=== PATIENT | female | born 1975 | race Two or more races ===

== ENCOUNTER 2017-02-15 09:48 | Inpatient (IN) | payer MEDICAID ==
[~2017-02-15] VITALS: Ht 154.9 cm; Wt 60.0 kg
[2017-02-15 09:49] VITALS: BP 154/70; PULSE 110; RESP 18; TEMP 98.4; O2SAT 98
[2017-02-15] MEDS ORDERED: SODIUM CHLOR 0.9% 1000 ML INJ 1,000 ML IV SCH (09:58)
[2017-02-15] MEDS ORDERED: SITA25 PO (10:00)
[2017-02-15] MEDS ORDERED: METF1000 PO (10:00)
[2017-02-15] MEDS ORDERED: MORPHINE SULFATE 4 MG/ML INJ IV PUSH ONE (10:00)
[2017-02-15] MEDS ORDERED: SODIUM CHLORIDE 0.9% FLUSH 10 ML FLUSH IV FLUSH PRN ×2 (10:00→14:15)
[2017-02-15] MEDS ORDERED: ONDANSETRON HCL 4 MG/2 ML VIAL IVP ONE (10:00)
--- NOTE | 2017-02-15 10:01 | PD ---
HPI Chief Complaint: Flank/Kidney Pain Time Seen by Provider: 09:55 Travel History International Travel<30 days: No Contact w/Intl Traveler<30days: No Traveled to known affect area: No History of Present Illness HPI 41-year-old female with history of diabetes, hypertension, hyponatremia, kidney stones, here for evaluation of left flank pain. The patient reports that about 2 weeks ago she was diagnosed with a left-sided kidney stone that was 6 mm at [facility]. She has been having intermittent left flank pain since this time which became constant today, sharp, radiates to her left lower abdomen. No modifying factors. Pain is now constant. No dysuria or hematuria. She has been having subjective fevers and chills as well as nausea. No vomiting. History of section and bilateral tubal ligation. No other abdominal surgeries. PFSH Past Medical History Diabetes: Yes Patient Takes Glucophage: Yes ?: Not LMP: a week ago Social History Alcohol Use: No Tobacco Use: No Allergies-Medications (Allergen,Severity, Reaction): Coded Allergies: No Known Allergies (Unverified , 02/15/17) Reported Meds & Prescriptions Reported Meds & Active Scripts Active Reported Januvia (Sitagliptin Phosphate) 25 Mg Tab 25 Mg PO DAILY Metformin (Metformin HCl) 1,000 Mg Tab 1,000 Mg PO BIDPC With meals Review of Systems Except as stated in HPI: all other systems reviewed are Neg Physical Exam Narrative GENERAL: Well-developed, well-nourished, comfortable, no acute distress. SKIN: Focused skin assessment warm/dry. No rash. HEAD: Atraumatic. Normocephalic. EYES: Pupils equal and round. No scleral icterus. No injection or drainage. ENT: Mucous membranes pink and moist. CARDIOVASCULAR: Regular rate and rhythm. RESPIRATORY: No accessory muscle use. Clear to auscultation. Breath sounds equal bilaterally. GASTROINTESTINAL: Abdomen soft, non-tender, nondistended. MUSCULOSKELETAL: No obvious deformities. No clubbing. No cyanosis. No edema. Moderate left CVA tenderness. No right CVA tenderness. No midline vertebral step-off or tenderness. NEUROLOGICAL: Awake and alert. No obvious cranial nerve deficits. Motor grossly within normal limits. Normal speech. PSYCHIATRIC: Appropriate mood and affect; insight and judgment normal. Data Data Last Documented VS Vital Signs Date Time Temp Pulse Resp B/P Pulse Ox O2 Delivery O2 Flow Rate FiO2 4/2/17 10:31 78 18 02/15/17 10:16 97 Nasal Cannula 2 02/15/17 09:49 98.4 154/70 Orders Beta Hcg (Quant/Titer) (02/15/17 09:58) Complete Blood Count With Diff (02/15/17 09:58) Comprehensive Metabolic Panel (02/15/17 09:58) Lipase (02/15/17 09:58) Prothrombin Time / Inr (Pt) (02/15/17 09:58) Act Partial Throm Time (Ptt) (02/15/17 09:58) Urinalysis - C+S If Indicated (02/15/17 09:58) Ct Abd/Pel W/O Iv Contrast (02/15/17 09:58) Iv Access Insert/Monitor (02/15/17 09:58) Ecg Monitoring (02/15/17 09:58) Oximetry (02/15/17 09:58) Morphine Inj (Morphine Inj) (02/15/17 10:00) Ondansetron Inj (Zofran Inj) (02/15/17 10:00) Sodium Chlor 0.9% 1000 Ml Inj (Ns 1000 M (02/15/17 09:58) Sodium Chloride 0.9% Flush (Ns Flush) (02/15/17 10:00) Ketorolac Inj (Toradol Inj) (02/15/17 12:00) Tamsulosin (Flomax) (02/15/17 12:15) Labs Laboratory Tests Test 02/15/17 02/15/17 10:00 10:05 White Blood Count 17.9 TH/MM3 Red Blood Count 5.49 MIL/MM3 Hemoglobin 15.5 GM/DL Hematocrit 47.3 % Mean Corpuscular Volume 86.1 FL Mean Corpuscular Hemoglobin 28.2 PG Mean Corpuscular Hemoglobin 32.8 % Concent Red Cell Distribution Width 15.6 % Platelet Count 602 TH/MM3 Mean Platelet Volume 9.0 FL Neutrophils (%) (Auto) 79.3 % Lymphocytes (%) (Auto) 9.5 % Monocytes (%) (Auto) 7.4 % Eosinophils (%) (Auto) 3.3 % Basophils (%) (Auto) 0.5 % Neutrophils # (Auto) 14.2 TH/MM3 Lymphocytes # (Auto) 1.7 TH/MM3 Monocytes # (Auto) 1.3 TH/MM3 Eosinophils # (Auto) 0.6 TH/MM3 Basophils # (Auto) 0.1 TH/MM3 CBC Comment DIFF FINAL Differential Comment Prothrombin Time 11.3 SEC Prothromb Time International 1.0 RATIO Ratio Activated Partial 29.8 SEC Thromboplast Time Sodium Level 137 MEQ/L Potassium Level 4.3 MEQ/L Chloride Level 103 MEQ/L Carbon Dioxide Level 24.8 MEQ/L Anion Gap 9 MEQ/L Blood Urea Nitrogen 11 MG/DL Creatinine 0.88 MG/DL Estimat Glomerular Filtration 71 ML/MIN Rate Random Glucose 166 MG/DL Calcium Level 9.8 MG/DL Total Bilirubin 0.5 MG/DL Aspartate Amino Transf 40 U/L (AST/SGOT) Alanine Aminotransferase 87 U/L (ALT/SGPT) Alkaline Phosphatase 136 U/L Total Protein 8.6 GM/DL Albumin 4.0 GM/DL Lipase 227 U/L Human Chorionic Gonadotropin, LESS THAN 1 Quant MIU/ML Urine Color COLORLESS Urine Turbidity CLEAR Urine pH 6.0 Urine Specific [place] 1.003 Urine Protein NEG mg/dL Urine Glucose (UA) NEG mg/dL Urine Ketones NEG mg/dL Urine Occult Blood NEG Urine Nitrite NEG Urine Bilirubin NEG Urine Urobilinogen LESS THAN 2.0 MG/DL Urine Leukocyte Esterase NEG Urine RBC LESS THAN 1 /hpf Urine WBC 1 /hpf Microscopic Urinalysis Comment CULT NOT INDICATED MDM Medical Decision Making Medical Screen Exam Complete: Yes Emergency Medical Condition: Yes Differential Diagnosis Nephrolithiasis, ureterolithiasis, UTI, pyelonephritis, diverticulitis, dissection unlikely Narrative Course Vital signs reviewed. CBC shows WBC 17.9, hemoglobin 15.5, hematocrit 47.3, platelets 602. Neutrophils 79.3%. CMP is remarkable for AST of 40, ALT 87, alkaline phosphatase 136, random glucose 166. UA is within normal limits, not suggestive of UTI. CT abdomen pelvis: CONCLUSION: Obstructing 6 - 7 mm densely calcified stone left ureteropelvic junction. Patient was made aware of all findings. She was given a dose of morphine and Toradol and her pain is still not well controlled. She tells me that she was diagnosed with a 6 mm stone on the left side at [facility] 2 weeks ago when she was having left flank pain. If this is the same stone, then it has not moved. Given uncontrolled pain, the patient be admitted for pain control and urology consultation. Case discussed with on-call urologist Dr. Landa who would like the patient to be NPO after midnight Case discussed with medical residents. The patient will be admitted to their service under Dr. Kahn. Diagnosis Primary Impression: Ureterolithiasis Additional Impression: Intractable pain Admitting Information Admitting Physician Requests: Baldev Holden MD Feb 15, 2017 10:01
[2017-02-15 10:16] VITALS: O2SAT 97
[2017-02-15 10:32] LABS: AUTOMATED NEUTROPHIL # 14.2 TH/MM3 (1.8-7.7); BASOPHIL # 0.1 TH/MM3 (0-0.2); BASOPHIL % 0.5 % (0.0-2.0); EOSINOPHIL # 0.6 TH/MM3 (0-0.4); EOSINOPHIL % 3.3 % (0.0-4.0); HEMATOCRIT 47.3 % (35.0-46.0); LYMPH % 9.5 % (9.0-44.0); LYMPHOCYTE # 1.7 TH/MM3 (1.0-4.8); MEAN CELL VOLUME 86.1 FL (80.0-100.0); MEAN CORPUSCULAR HEMOGLOBIN 28.2 PG (27.0-34.0); MEAN CORPUSCULAR HGB CONC 32.8 % (32.0-36.0); MONO % 7.4 % (0.0-8.0); NEUT % 79.3 % (16.0-70.0); PLATELET COUNT 602 TH/MM3 (150-450); RED BLOOD COUNT 5.49 MIL/MM3 (4.00-5.30); RED CELL DISTRIBUTION WIDTH 15.6 % (11.6-17.2); WHITE BLOOD COUNT 17.9 TH/MM3 (4.0-11.0)
[2017-02-15 10:33] LABS: HEMO FLAGS DIFF FINAL
[2017-02-15 10:43] LABS: APTT (PATIENT) 29.8 SEC (24.3-30.1); PROTHROMBIN TIME - PATIENT 11.3 SEC (9.8-11.6)
[2017-02-15 10:58] LABS: ALKALINE PHOSPHATASE 136 U/L (45-117); ALT (GPT) 87 U/L (10-53); BETA HCG QUANT LESS THAN 1 MIU/ML (0-5); TOTAL BILIRUBIN ADULT 0.5 MG/DL (0.2-1.0)
[2017-02-15 11:07] LABS: ANION GAP 9 MEQ/L (5-15); AST (GOT) 40 U/L (15-37); BICARBONATE 24.8 MEQ/L (21.0-32.0); BLOOD UREA NITROGEN 11 MG/DL (7-18); CHLORIDE 103 MEQ/L (98-107); GLOMERULAR FILTRATION RATE 71 ML/MIN (>89); POTASSIUM 4.3 MEQ/L (3.5-5.1); SODIUM (NA) 137 MEQ/L (136-145)
[2017-02-15 11:17] LABS: BLOOD, URINE NEG (NEG); COMMENT (UR) CULT NOT INDICATED; CULTURE IF INDICATED CULT NOT INDICATED; GLUCOSE,URINE NEG (NEG); KETONE, URINE NEG (NEG); NITRITE,URINE NEG (NEG); URINE COLOR COLORLESS (YELLW/STRAW)
[2017-02-15] MEDS ORDERED: KETOROLAC TROMETHAMINE 30 MG/ML (IVP) VIAL IV PUSH ONE (12:00)
--- NOTE | 2017-02-15 12:00 | RADRPT ---
EXAM DATE/TIME: 02/15/2017 11:45 [place] COMPARISON: No previous studies available for comparison. INDICATIONS : Left flank pain for one week. ORAL CONTRAST: No oral contrast ingested. RADIATION DOSE: 11.21 CTDIvol (mGy) MEDICAL HISTORY : None SURGICAL HISTORY : None. ENCOUNTER: Initial ACUITY: 1 week PAIN SCALE: 4/10 LOCATION: Left flank TECHNIQUE: Volumetric scanning of the abdomen and pelvis was performed. Using automated exposure control and ad justment of the mA and/or kV according to patient size, radiation dose was kept as low as reasonably achievable to obtain optimal diagnostic quality images. FINDINGS: The lung bases are clear. There is no pericardial effusion. The liver is free of focal defects. Sp peterson, pancreas and adrenal glands are unremarkable. RIGHT KIDNEY: There are multiple small 1 - 2 mm calculi on the right. LEFT KIDNEY: There is mild prominence to the left collecting system with an obstructing stone measuring 6 - 7 mm a t the left ureteropelvic junction. Tiny 2 mm stone remains in the left kidney. Pelvic contents are unremarkable. CONCLUSION: Obstructing 6 - 7 mm densely calcified stone left ureteropelvic junction. Rk Guevara MD FACR on February 15, 2017 at 11:54 Board Certified Radiologist. This report was verified electronically.
[2017-02-15] MEDS ORDERED: TAMSULOSIN HCL 0.4 MG CAP PO ONE (12:15)
[2017-02-15 12:53] VITALS: BP 131/77; PULSE 90; RESP 18; O2SAT 99
--- NOTE | 2017-02-15 14:10 | HHI.HP ---
HPI Service Family Medicine Primary Care Physician Unknown Admission Diagnosis left ureterolithiasis, intractable left flank pain Diagnoses: International Travel<30 Days: No Contact w/Intl Traveler<30days: No Known Affected Area: No History of Present Illness 41 year old female presents with left sided flank pain. The pain started off as a dull ache one week ago. She went to the hospital at that time and was diagnosed with a kidney stone. She is now returning because the pain has become sharp, stabbing, and intense. It is located on in the left flank and radiates around to the left lower quadrant. The pain comes in paroxysms, and can be 8/10 when at its peak. It is currently a 4/10 after pain medication. She has pain with urination but no hematuria. This is her fourth kidney stone in 3 years. She had a fever 2 days ago as high as 101. She has nausea and had vomiting X3 four days ago that resolved. She also has a stuffy nose and a dry cough, and reports a history of allergic rhinitis. Review of Systems Constitutional: COMPLAINS OF: Fever, Chills, Change in appetite, DENIES: Diaphoretic episodes, Fatigue, Weight gain, Weight loss Endocrine: DENIES: Heat/cold intolerance, Polydipsia, Polyuria Eyes: DENIES: Blurred vision, Eye inflammation, Eye pain, Double Vision Ears, nose, mouth, throat: COMPLAINS OF: Running Nose, DENIES: Throat pain, Hoarseness, Sinus Pain, Odynophagia Respiratory: DENIES: Cough, Hemoptysis, Shortness of breath Cardiovascular: DENIES: Chest pain, Syncope, Lower Extremity Edema Gastrointestinal: COMPLAINS OF: Nausea, Vomiting, DENIES: Abdominal pain, Black stools, Bloody stools, Constipation, Diarrhea Genitourinary: COMPLAINS OF: Dysuria, DENIES: Vaginal discharge Musculoskeletal: COMPLAINS OF: Back pain, DENIES: Neck pain Integumentary: DENIES: Rash Hematologic/lymphatic: DENIES: Lymphadenopathy Immunologic/allergic: DENIES: Eczema Neurologic: DENIES: Seizures Psychiatric: DENIES: Mood changes, Depression Past Family Social History Past Medical History Diabetes mellitus type 2 Hyperlipidemia Hypertension Thrombocytosis of unknown etiology, followed by hematology Past Surgical History Right knee surgery x1 tubal ligation Reported Medications Reported Meds & Active Scripts Active Reported Pravastatin 20 Mg Tab 20 Mg PO HS Januvia (Sitagliptin Phosphate) 100 Mg Tab 100 Mg PO DAILY Fish Oil ([place]-3 Fatty Acids) 1,000 Mg Cap 2,000 Mg PO BID Aspirin 81 Mg Tabdr 81 Mg PO DAILY Amlodipine (Amlodipine Besylate) 10 Mg Tab 10 Mg PO DAILY Januvia (Sitagliptin Phosphate) 25 Mg Tab 25 Mg PO DAILY Metformin (Metformin HCl) 1,000 Mg Tab 1,000 Mg PO BIDPC With meals Allergies: Coded Allergies: No Known Allergies (Unverified , 02/15/17) Active Ordered Medications Inpatient Medications Acetaminophen (Tylenol) 650 mg Q4H PRN PO TEMP > 100.4; Start 02/15/17 at 14:15 Docusate Sodium (Colace) 100 mg Q12HR PO Last administered on 02/15/17 14:27; Start 02/15/17 at 15:00 Enoxaparin Sodium (Lovenox Inj) 40 mg Q24H SQ Last administered on 02/15/17 14: 28; Start 02/15/17 at 15:00 Hydromorphone HCl (Dilaudid Pf Inj) 1 mg Q3H PRN IV BREAKTHROUGH PAIN; Start at 14:15 Ketorolac Tromethamine (Toradol Inj) 30 mg ONCE ONCE IV PUSH Last administered on 02/15/17 12:08; Start 02/15/17 at 12:00; Stop 02/15/17 at 12:01; Status DC Morphine Sulfate (Morphine Inj) 4 mg ONCE ONCE IV PUSH Last administered on 10:14; Start 02/15/17 at 10:00; Stop 02/15/17 at 10:01; Status DC Naloxone HCl (Narcan Inj) 0.4 mg UNSCH PRN IV SEE LABEL COMMENTS; Start at 14:15; Stop 02/15/17 at 14:15; Status DC Ondansetron HCl (Zofran Inj) 4 mg Q6H PRN IVP NAUSEA OR VOMITING; Start at 14:15 Oxycodone/ Acetaminophen (Percocet 5-325 Mg) 1 tab Q6H PRN PO PAIN SCALE 3 TO 5; Start 02/15/17 at 14:15 Oxycodone/ Acetaminophen (Percocet 10-325 Mg) 1 tab Q6H PRN PO PAIN SCALE 6 TO 10; Start 02/15/17 at 14:15 Sennosides (Senokot) 17.2 mg Q12H PRN PO CONSTIPATION; Start 02/15/17 at 14:15 Sodium Chloride (NS 1000 ml Inj) 1,000 ml @ 100 mls/hr Q10H IV Last administered on 02/15/17 14:41; Start 02/15/17 at 14:30 Sodium Chloride (NS Flush) 2 ml BID IV FLUSH ; Start 02/15/17 at 14:15 Tamsulosin HCl (Flomax) 0.4 mg ONCE ONCE PO Last administered on 02/15/17 12: 43; Start 02/15/17 at 12:15; Stop 02/15/17 at 12:16; Status DC Tamsulosin HCl 0.4 mg 0.4 mg DAILY PO ; Start 02/16/17 at 09:00 Family History Aunt: frequent kidney stones Paternal: diabetes, hypertension Social History Never smoked No alcohol or drug use Lives with daughter and Not currently employed Physical Exam Vital Signs Vital Signs Date Time Temp Pulse Resp B/P Pulse Ox O2 Delivery O2 Flow Rate FiO2 02/15/17 12:53 90 18 131/77 99 Room Air 02/15/17 10:31 78 18 02/15/17 10:16 97 Nasal Cannula 2 02/15/17 09:49 98.4 110 18 154/70 98 Physical Exam GENERAL: Lying in bed, no acute distress SKIN: No rashes, clear HEENT: No conjunctivitis, has nasal congestion, normal pharynx NECK: No lymphadenopathy CARDIOVASCULAR: Regular rate and rhythm without murmurs, gallops, or rubs. Normal pulses. RESPIRATORY: Clear to auscultation. Breath sounds equal bilaterally. No wheezes , rales, or rhonchi. GASTROINTESTINAL: Abdomen soft, non-tender, nondistended. Normal bowel sounds. MUSCULOSKELETAL: Extremities without clubbing, cyanosis, or edema. : CVA tenderness on the right, extends to left lower quadrant NEUROLOGICAL: Awake and alert. Cranial nerves II through XII intact. Laboratory Laboratory Tests Test 02/15/17 02/15/17 10:00 10:05 White Blood Count 17.9 Red Blood Count 5.49 Hemoglobin 15.5 Hematocrit 47.3 Mean Corpuscular Volume 86.1 Mean Corpuscular Hemoglobin 28.2 Mean Corpuscular Hemoglobin 32.8 Concent Red Cell Distribution Width 15.6 Platelet Count 602 Mean Platelet Volume 9.0 Neutrophils (%) (Auto) 79.3 Lymphocytes (%) (Auto) 9.5 Monocytes (%) (Auto) 7.4 Eosinophils (%) (Auto) 3.3 Basophils (%) (Auto) 0.5 Neutrophils # (Auto) 14.2 Lymphocytes # (Auto) 1.7 Monocytes # (Auto) 1.3 Eosinophils # (Auto) 0.6 Basophils # (Auto) 0.1 CBC Comment DIFF FINAL Differential Comment Prothrombin Time 11.3 Prothromb Time International 1.0 Ratio Activated Partial 29.8 Thromboplast Time Sodium Level 137 Potassium Level 4.3 Chloride Level 103 Carbon Dioxide Level 24.8 Anion Gap 9 Blood Urea Nitrogen 11 Creatinine 0.88 Estimat Glomerular Filtration 71 Rate Random Glucose 166 Calcium Level 9.8 Total Bilirubin 0.5 Aspartate Amino Transf 40 (AST/SGOT) Alanine Aminotransferase 87 (ALT/SGPT) Alkaline Phosphatase 136 Total Protein 8.6 Albumin 4.0 Lipase 227 Human Chorionic Gonadotropin, LESS THAN 1 Quant Urine Color COLORLESS Urine Turbidity CLEAR Urine pH 6.0 Urine Specific [place] 1.003 Urine Protein NEG Urine Glucose (UA) NEG Urine Ketones NEG Urine Occult Blood NEG Urine Nitrite NEG Urine Bilirubin NEG Urine Urobilinogen LESS THAN 2.0 Urine Leukocyte Esterase NEG Urine RBC LESS THAN 1 Urine WBC 1 Microscopic Urinalysis Comment CULT NOT INDICATED Result Diagram: 02/15/17 1000 02/15/17 1000 Imaging multiple small 1-2 mm calculi on right. Mild prominence of the left collective system, with an obstructing stone that is 6-7 mm at the ureteropelvic junction. 2 mm stone in the left kidney. Septic Shock Reassessment Heart: Regular rate and rhythm Lungs: Clear Skin: Warm Capillary Refill: <2 seconds Assessment and Plan Assessment and Plan 41 year old female with an obstructing left ureteric stone. Code Status FULL CODE Discussed Condition With Dr. Candida Mcdonnell Problem List: (1) Kidney stone on left side Status: Acute Plan: 6 to 7 mm obstructing stone at the left ureteropelvic junction, with mild prominence of the left collecting system. Also incidentally with 1 to 2 mm multiple small calculi on the right. Also with a 2 mm kidney stone on the left. This is her fourth kidney stone in the past 3 years. No kidney stones before then. She has an aunt with frequent kidney stones. She does not know type of kidney stone she's had in the past. The 6 to 7 mm kidney stone is likely obstructive given mild hydronephrosis and length of time the stone has been present. Urinalysis negative for infection, also no hematuria. - Consulted Dr. Landa, urologist. - Will likely get a ureteric stent in the morning. Will be NPO after midnight. - Pain management with Tylenol and Percocet, Dilaudid for breakthrough pain. - Tamsulosin 0.4 mg qday. - Maintenance fluids at 100 mls/hr. - Ondansetron PRN for nausea/vomiting. - Will benefit from strainer to assess type of stones to better direct counseling. (2) Diabetes type 2, controlled Status: Chronic Plan: - Hold metformin and Januvia - Low dose sliding scale insulin (3) Hypertension Status: Chronic Plan: - Continue amlodipine (4) Hyperlipidemia Status: Chronic Plan: - Continue statin (5) No contraindication to deep vein thrombosis (DVT) prophylaxis Status: Acute Plan: - Lovenox and SCD's for DVT prophylaxis - Encourage ambulation as tolerated (6) Nutrition, metabolism, and development symptoms Status: Acute Plan: Fluids: NS 100 mls/hr Electrolytes: Normal Nutrition: Diabetic diet, NPO after midnight Physician Certification 2 Midnight Certification Type: Admission for Inpatient Services Order for Inpatient Services The services are ordered in accordance with Medicare regulations or non- Medicare payer requirements, as applicable. In the case of services not specified as inpatient-only, they are appropriately provided as inpatient services in accordance with the 2-midnight benchmark. Estimated LOS (days): 3 days is the estimated time the patient will need to remain in the hospital, assuming treatment plan goals are met and no additional complications. Post-Hospital Plan: Home Erwin Peraza MD R2 Feb 15, 2017 14:10
[2017-02-15] MEDS ORDERED: ACETAMINOPHEN 325 MG TAB PO PRN (14:15)
[2017-02-15] MEDS ORDERED: oxyCODONE/ACETAMINOPHEN 5 MG/325 MG TAB PO PRN (14:15)
[2017-02-15] MEDS ORDERED: HYDROmorphone HCL PF 1 MG/ML VIAL IV PRN (14:15)
[2017-02-15] MEDS ORDERED: ONDANSETRON HCL 4 MG/2 ML VIAL IVP PRN (14:15)
[2017-02-15] MEDS ORDERED: SENNOSIDES 8.6 MG TAB PO PRN (14:15)
[2017-02-15] MEDS ORDERED: NALOXONE HCL 0.4 MG/ML AMP IV PRN ×2 (14:15)
[2017-02-15] MEDS: SODIUM CHLORIDE 0.9% FLUSH 10 ML FLUSH IV FLUSH SCH ×2 (14:15→20:55)
[2017-02-15] MEDS: DOCUSATE SODIUM 100 MG CAP PO SCH ×2 (14:27→20:55)
[2017-02-15] MEDS: ENOXAPARIN SODIUM 40 MG/0.4 ML SYRINGE SQ SCH (14:28)
[2017-02-15] MEDS: SODIUM CHLOR 0.9% 1000 ML INJ 1,000 ML IV SCH (14:41)
[2017-02-15 16:25] VITALS: BP 130/69; PULSE 94; RESP 22; TEMP 98; O2SAT 97
[2017-02-15] MEDS ORDERED: PRAV20TA2 PO (17:25)
[2017-02-15] MEDS ORDERED: ASPI1TAB69 PO (17:25)
[2017-02-15] MEDS ORDERED: AMLO10TA2 PO (17:25)
[2017-02-15] MEDS ORDERED: SITA1TAB2 PO (17:25)
[2017-02-15] MEDS ORDERED: FISH1000 PO (17:25)
--- NOTE | 2017-02-15 17:26 | PD.CONS ---
HPI Service Urology Consult Requested By Reason for Consult Nephrolithiasis Primary Care Physician Unknown Diagnosis: History of Present Illness 41 yo female with history of DM admitted for left flank pain found to have a left midureteral stone. Patient reports she began to experience left flank pain approx one month ago. The pain was initially dull, located mainly in the left flank. However the pain worsened to a sharp stabbing pain that now radiates from the left flank to the left anterior abdomen. No fevers, no hematuria. Ct scan in the ED identied a left mid to proximal ureteral stone measuring 5-6mm in size causing left hydronphrosis. Patient has had kidney stones in the past of which she has passed spontaneously. She has never required surgical intervention for her stone disease. She has an appointment with [facility] near the and of February. Review of Systems ROS Limitations: Clinical Condition Constitutional: DENIES: Fever Endocrine: DENIES: Polyuria Eyes: DENIES: Blurred vision Ears, nose, mouth, throat: DENIES: Hearing loss Respiratory: DENIES: Apneas Cardiovascular: DENIES: Chest pain Gastrointestinal: COMPLAINS OF: Abdominal pain, Constipation Genitourinary: DENIES: Urinary frequency, Hematuria, Dysuria Musculoskeletal: COMPLAINS OF: Back pain Integumentary: DENIES: Rash Hematologic/lymphatic: DENIES: Bruising Immunologic/allergic: DENIES: Eczema Neurologic: DENIES: Headache Psychiatric: DENIES: Anxiety Except as stated in HPI: all other systems reviewed are Neg Past Family Social History Past Medical History DM Nephrolithiasis Past Surgical History No prior surgeries Reported Medications Reported Meds & Active Scripts Active Reported Januvia (Sitagliptin Phosphate) 25 Mg Tab 25 Mg PO DAILY Metformin (Metformin HCl) 1,000 Mg Tab 1,000 Mg PO BIDPC With meals Allergies: Coded Allergies: No Known Allergies (Unverified , 02/15/17) Active Ordered Medications Current Medications Medications (Trade) Dose Ordered Sig/Geoff Route Start Time Stop Time Status Last Admin (NS Flush) 2 ml UNSCH PRN IV FLUSH 02/15/17 14:15 (NS Flush) 2 ml BID IV FLUSH 02/15/17 14:15 (Tylenol) 650 mg Q4H PRN PO 02/15/17 14:15 (Zofran Inj) 4 mg Q6H PRN IVP 02/15/17 14:15 (Colace) 100 mg Q12HR PO 02/15/17 15:00 02/15/17 14:27 (Senokot) 17.2 mg Q12H PRN PO 02/15/17 14:15 (Lovenox Inj) 40 mg Q24H SQ 02/15/17 15:00 02/15/17 14:28 (Narcan Inj) 0.4 mg UNSCH PRN IV 02/15/17 14:15 (Percocet 5-325 Mg) 1 tab Q6H PRN PO 02/15/17 14:15 (Percocet 10-325 Mg) 1 tab Q6H PRN PO 02/15/17 14:15 (Dilaudid Pf Inj) 1 mg Q3H PRN IV 02/15/17 14:15 Tamsulosin HCl 0.4 mg 0.4 mg DAILY PO 02/16/17 09:00 (NS 1000 ml Inj) 1,000 ml @ 100 mls/hr Q10H IV 02/15/17 14:30 02/15/17 14:41 Family History Family history reviewed and noncontributory to present illness Social History No tobacco or ETOh use Physical Exam Vital Signs Date Time Temp Pulse Resp B/P Pulse Ox O2 Delivery O2 Flow Rate FiO2 02/15/17 16:25 98.0 94 22 130/69 97 02/15/17 12:53 90 18 131/77 99 Room Air 02/15/17 10:31 78 18 02/15/17 10:16 97 Nasal Cannula 2 02/15/17 09:49 98.4 110 18 154/70 98 Physical Exam GENERAL: This is a well-nourished, well-developed patient, in no apparent distress. SKIN: No rashes, ecchymoses or lesions. Cool and dry. HEAD: Atraumatic. Normocephalic. EYES: Extraocular motions intact. No scleral icterus. No injection or drainage. ENT: Nose without bleeding, purulent drainage. Airway patent. NECK: Trachea midline. No JVD or lymphadenopathy. CARDIOVASCULAR: Normal pulses, extremities well perfused RESPIRATORY: Nonlabored, equal chest rise GASTROINTESTINAL: Abdomen soft, non-tender, nondistended. MUSCULOSKELETAL: Extremities without clubbing, cyanosis, or edema. NEUROLOGICAL: Awake and alert. Motor and sensory grossly within normal limits. Normal speech. Lab results reviewed: Yes Laboratory Tests Test 02/15/17 02/15/17 10:00 10:05 White Blood Count 17.9 Red Blood Count 5.49 Hemoglobin 15.5 Hematocrit 47.3 Mean Corpuscular Volume 86.1 Mean Corpuscular Hemoglobin 28.2 Mean Corpuscular Hemoglobin 32.8 Concent Red Cell Distribution Width 15.6 Platelet Count 602 Mean Platelet Volume 9.0 Neutrophils (%) (Auto) 79.3 Lymphocytes (%) (Auto) 9.5 Monocytes (%) (Auto) 7.4 Eosinophils (%) (Auto) 3.3 Basophils (%) (Auto) 0.5 Neutrophils # (Auto) 14.2 Lymphocytes # (Auto) 1.7 Monocytes # (Auto) 1.3 Eosinophils # (Auto) 0.6 Basophils # (Auto) 0.1 CBC Comment DIFF FINAL Differential Comment Prothrombin Time 11.3 Prothromb Time International 1.0 Ratio Activated Partial 29.8 Thromboplast Time Sodium Level 137 Potassium Level 4.3 Chloride Level 103 Carbon Dioxide Level 24.8 Anion Gap 9 Blood Urea Nitrogen 11 Creatinine 0.88 Estimat Glomerular Filtration 71 Rate Random Glucose 166 Calcium Level 9.8 Total Bilirubin 0.5 Aspartate Amino Transf 40 (AST/SGOT) Alanine Aminotransferase 87 (ALT/SGPT) Alkaline Phosphatase 136 Total Protein 8.6 Albumin 4.0 Lipase 227 Human Chorionic Gonadotropin, LESS THAN 1 Quant Urine Color COLORLESS Urine Turbidity CLEAR Urine pH 6.0 Urine Specific [place] 1.003 Urine Protein NEG Urine Glucose (UA) NEG Urine Ketones NEG Urine Occult Blood NEG Urine Nitrite NEG Urine Bilirubin NEG Urine Urobilinogen LESS THAN 2.0 Urine Leukocyte Esterase NEG Urine RBC LESS THAN 1 Urine WBC 1 Microscopic Urinalysis Comment CULT NOT INDICATED Result Diagram: 02/15/17 1000 02/15/17 1000 Personally reviewed images: Yes Imaging CT scan reviewed with evidence of left ureteral stone and hydronephrosis Assessment and Plan Problem List: (1) Ureterolithiasis ICD Code: N20.1 Status: Acute (2) Kidney stone on left side ICD Code: N20.0 Status: Acute (3) Intractable pain ICD Code: R52 Status: Acute Assessment and Plan -Left proximal obstructing ureteral stone, 6mm, unlikely to pass given time frame of 1 week with persistent pain -Plan for OR tomorrow for cystoscopy, left ureteral stent placement -Regular diet now, NPO at midnight -Discussed with patient who understands and agrees with above plan Jonathan Landa MD Feb 15, 2017 17:26
[2017-02-15] MEDS ORDERED: DEXTROSE 50% IN WATER 50 ML VIAL(D50) IV PUSH PRN (18:00)
[2017-02-15] MEDS ORDERED: GLUCAGON 1 MG/ML VIAL OTHER PRN (18:00)
[2017-02-15 20:34] VITALS: BP 157/76; PULSE 92; RESP 18; TEMP 96.6; O2SAT 98
[2017-02-15] MEDS: PRAVASTATIN SOD 20 MG TAB PO SCH (20:55)
[2017-02-15] MEDS: INSULIN ASPART SUPPLEMENTAL SCALE SQ SCH (20:56)
[2017-02-15] MEDS ORDERED: NON-FORMULARY DRUG (Omega-3 Fatty Acids (Fish Oil) 2,000 MG) PO SCH (21:00)
[2017-02-16 00:10] VITALS: BP 122/59; PULSE 94; RESP 17; TEMP 97.7; O2SAT 96
[2017-02-16] MEDS: SODIUM CHLOR 0.9% 1000 ML INJ 1,000 ML IV SCH ×3 (01:32→19:49)
[2017-02-16] MEDS ORDERED: INSULIN HUMAN REGULAR 1,000 UNITS/10 ML VIAL SQ PRN (03:15)
[2017-02-16] MEDS: LACTATED RINGER'S 1000 ML INJ 1,000 ML IV SCH (03:15)
[2017-02-16 04:11] VITALS: BP 130/73; PULSE 88; RESP 18; TEMP 97.8; O2SAT 96
[2017-02-16] MEDS: oxyCODONE/ACETAMINOPHEN 10 MG/325 MG TAB PO PRN ×2 (04:58→19:50)
[2017-02-16 05:37] LABS: AUTOMATED NEUTROPHIL # 6.4 TH/MM3 (1.8-7.7); BASOPHIL # 0.1 TH/MM3 (0-0.2); BASOPHIL % 0.8 % (0.0-2.0); EOSINOPHIL # 0.6 TH/MM3 (0-0.4); EOSINOPHIL % 6.1 % (0.0-4.0); HEMATOCRIT 41.6 % (35.0-46.0); HEMO FLAGS DIFF FINAL; LYMPH % 19.5 % (9.0-44.0); LYMPHOCYTE # 1.9 TH/MM3 (1.0-4.8); MEAN CELL VOLUME 85.8 FL (80.0-100.0); MEAN CORPUSCULAR HEMOGLOBIN 27.9 PG (27.0-34.0); MEAN CORPUSCULAR HGB CONC 32.5 % (32.0-36.0); MONO % 9.8 % (0.0-8.0); NEUT % 63.8 % (16.0-70.0); PLATELET COUNT 461 TH/MM3 (150-450); RED BLOOD COUNT 4.85 MIL/MM3 (4.00-5.30); RED CELL DISTRIBUTION WIDTH 15.6 % (11.6-17.2)
[2017-02-16] MEDS: INSULIN ASPART SUPPLEMENTAL SCALE SQ SCH ×4 (06:04→22:07)
[2017-02-16 06:11] LABS: ALKALINE PHOSPHATASE 91 U/L (45-117); ALT (GPT) 69 U/L (10-53); ANION GAP 7 MEQ/L (5-15); AST (GOT) 33 U/L (15-37); BICARBONATE 26.1 MEQ/L (21.0-32.0); BLOOD UREA NITROGEN 10 MG/DL (7-18); CHLORIDE 106 MEQ/L (98-107); GLOMERULAR FILTRATION RATE 97 ML/MIN (>89); POTASSIUM 4.2 MEQ/L (3.5-5.1); SODIUM (NA) 139 MEQ/L (136-145); TOTAL BILIRUBIN ADULT 0.6 MG/DL (0.2-1.0)
[2017-02-16 08:00] VITALS: BP 129/77; PULSE 85; RESP 17; TEMP 95.9; O2SAT 97
--- NOTE | 2017-02-16 08:05 | HHI.FPPN ---
Subjective Remarks Wendy Gonzalez is a 41yo lady with medical history significant for recurrent nephrolithiasis and DM II admitted for left-sided flank pain. Of note, she was diagnosed with a left-sided kidney stone at an outside hospital one week prior. Pain worsened, described as sharp, stabbing, and intense. Left flank in location , with radiation to left lower quadrant. + fever to 101 two days prior. + n/v four days prior. For further details, please see resident H&P. This morning, she reports that she continues to have some mild nausea but no vomiting. No fevers overnight. Pain is controlled with percocet, was 6/10 pre- medication. No dysuria. She would like to go home today if possible. ROS: No fevers. + left flank pain (controlled). + nausea, no vomiting. No dysuria. All other systems reviewed are negative. PMH/PSxH/SocHx/FamHx: Per resident H&P. Significant for: DM II, hyperlipidemia, HTN, thrombocytosis followed by hematology. , BTL, R knee surgery. Fam hx of recurrent nephrolithiasis in her aunt; DM II and HTN on father's side. Never smoker, no alcohol use, no recreational drug use. Unemployed. Objective Vitals Vital Signs Date Time Temp Pulse Resp B/P Pulse Ox O2 Delivery O2 Flow Rate FiO2 02/16/17 06:05 18 02/16/17 04:11 97.8 88 18 130/73 96 02/16/17 00:10 97.7 94 17 122/59 96 02/15/17 20:34 96.6 92 18 157/76 98 02/15/17 16:25 98.0 94 22 130/69 97 02/15/17 12:53 90 18 131/77 99 Room Air 02/15/17 10:31 78 18 02/15/17 10:16 97 Nasal Cannula 2 02/15/17 09:49 98.4 110 18 154/70 98 I/O 02/15/17 02/15/17 02/15/17 02/16/17 02/16/17 02/16/17 07:00 15:00 23:00 07:00 15:00 23:00 Intake Total 790 ml 530 ml Balance 790 ml 530 ml Intake Oral 480 ml IV Total 310 ml 530 ml # Voids 2 2 Result Diagram: 02/16/17 0515 02/16/17 0515 Objective Remarks GENERAL: in NAD, no resp distress. Nontoxic. Lying comfortably in bed. Changes from supine to sit without difficulty. HEENT: NCAT, EOMI, no scleral icterus, no conjunctival injection. MMM. NECK: Supple, no meningeal signs. CV: RRR, S1 S2. No murmurs CHEST/PULM: CTAB, no crackles, no wheezes ABD/GI: +BS, soft, nondistended. Mild tenderness throughout, worse at LLQ. No rebound, no guarding. EXT: 2+ DP pulses. No edema. No calf tenderness : + Mild left CVA tenderness. No R CVA tenderness NEURO: Awake, alert. Normal muscle tone. Grossly WNL. SKIN: No rashes, no jaundice. PSYCH: Mood and affect are appropriate. Speech fluent. Does not appear to respond to internal stimuli. A/P Assessment and Plan 41 year old female with an obstructing left ureteric stone, which failed outpatient conservative treatment. Attending Attestation Patient seen, examined, and discussed with resident team. The patient has been seen and examined. The chart and all resident notes have been reviewed. I agree that inpatient care is appropriate and that a two midnight stay was expected for the reasons documented in the resident history and physical. I have discussed this with the resident and certify the resident s order for inpatient admission. Problem List: (1) Kidney stone on left side Status: Acute Plan: Recurrent nephrolithiasis. Pt was seen one week prior in outside ER, where she was diagnosed with left nephrolithiasis. She has failed outpatient conservative management for this. CT demonstrates: 6 to 7 mm obstructing stone at the left ureteropelvic junction , with mild prominence of the left collecting system. Also incidentally with 1 to 2 mm multiple small calculi on the right. Also with a 2 mm kidney stone on the left. - Consulted Dr. Landa, urologist, who plans for cystoscopy and placement of ureteral stent today. - Continue current pain management regimen. - Pain management with Tylenol and Percocet, Dilaudid for breakthrough pain. - Tamsulosin 0.4 mg qday. - Maintenance fluids at 100 mls/hr. - Ondansetron PRN for nausea/vomiting. - Will benefit from strainer to assess type of stones to better direct counseling/diet changes. (2) Diabetes type 2, controlled Status: Chronic Plan: - Hold metformin and Januvia - Low dose sliding scale insulin - Glucose OK. (3) Hypertension Status: Chronic Plan: - Continue amlodipine - Will also have some antihypertensive effect with Tamsulosin (4) Hyperlipidemia Status: Chronic Plan: - Continue statin Ama Kahn MD Feb 16, 2017 08:05 (6) Nutrition, metabolism, and development symptoms Status: Acute Plan: Fluids: NS 100 mls/hr Electrolytes: Normal Nutrition: Diabetic diet, NPO after midnight Ama Kahn MD Feb 16, 2017 08:05 Result Diagram: 02/16/1751402/16/17514 Objective Remarks GENERAL: HEENT: NECK: CV: CHEST/PULM: ABD/GI: EXT: : NEURO: SKIN: PSYCH: A/P Assessment and Plan 41 year old female with an obstructing left ureteric stone, which failed outpatient treatment. Attending Attestation Patient seen, examined, and discussed with resident team. The patient has been seen and examined. The chart and all resident notes have been reviewed. I agree that inpatient care is appropriate and that a two midnight stay is expected for the reasons documented in the resident history and physical. I have discussed this with the resident and certify the resident s order for inpatient admission. Problem List: (1) Kidney stone on left side Status: Acute Plan: 6 to 7 mm obstructing stone at the left ureteropelvic junction, with mild prominence of the left collecting system. Also incidentally with 1 to 2 mm multiple small calculi on the right. Also with a 2 mm kidney stone on the left. This is her fourth kidney stone in the past 3 years. No kidney stones before then. She has an aunt with frequent kidney stones. She does not know type of kidney stone she's had in the past. The 6 to 7 mm kidney stone is likely obstructive given mild hydronephrosis and length of time the stone has been present. Urinalysis negative for infection, also no hematuria. - Consulted Dr. Landa, urologist. - Will likely get a ureteric stent in the morning. Will be NPO after midnight. - Pain management with Tylenol and Percocet, Dilaudid for breakthrough pain. - Tamsulosin 0.4 mg qday. - Maintenance fluids at 100 mls/hr. - Ondansetron PRN for nausea/vomiting. - Will benefit from strainer to assess type of stones to better direct counseling. (2) Diabetes type 2, controlled Status: Chronic Plan: - Hold metformin and Januvia - Low dose sliding scale insulin (3) Hypertension Status: Chronic Plan: - Continue amlodipine (4) Hyperlipidemia Status: Chronic Plan: - Continue statin (5) No contraindication to deep vein thrombosis (DVT) prophylaxis Status: Acute Plan: - Lovenox and SCD's for DVT prophylaxis - Encourage ambulation as tolerated (6) Nutrition, metabolism, and development symptoms Status: Acute Plan: Fluids: NS 100 mls/hr Electrolytes: Normal Nutrition: Diabetic diet, NPO after midnight Ama Kahn MD Feb 16, 2017 08:05
[2017-02-16] MEDS: TAMSULOSIN HCL 0.4 MG CAP PO SCH (09:00)
[2017-02-16] MEDS: DOCUSATE SODIUM 100 MG CAP PO SCH ×2 (09:00→19:49)
[2017-02-16] MEDS: SODIUM CHLORIDE 0.9% FLUSH 10 ML FLUSH IV FLUSH SCH ×2 (09:00→19:49)
[2017-02-16 09:20] VITALS: O2SAT 98
[2017-02-16 12:00] VITALS: BP 140/79; PULSE 85; RESP 17; TEMP 97.3; O2SAT 99
[2017-02-16] MEDS ORDERED: PROPOFOL 200 MG/20 ML AMP IV ONE (12:00)
[2017-02-16] MEDS ORDERED: ONDANSETRON HCL 4 MG/2 ML VIAL IV PUSH ONE (12:00)
[2017-02-16] MEDS: ENOXAPARIN SODIUM 40 MG/0.4 ML SYRINGE SQ SCH (13:25)
[2017-02-16] MEDS ORDERED: FAMOTIDINE 20 MG/2 ML VIAL ONE (14:46)
[2017-02-16] MEDS ORDERED: MIDAZOLAM HCL 2 MG/2 ML VIAL ONE (14:46)
[2017-02-16] MEDS ORDERED: ACETAMINOPHEN 1000 MG/100 ML VIAL IV ONE (14:46)
[2017-02-16] MEDS ORDERED: ceFAZolin INJ 1,000 MG VIAL IV ONE (15:17)
[2017-02-16] MEDS ORDERED: IOHEXOL 350 MG/ML 50 ML BTL (for RAD DIAG) ONE (15:19)
[2017-02-16] MEDS ORDERED: DO NOT ADM ANY ANTICOAGULANT DRUGS PRN (16:15)
--- NOTE | 2017-02-16 19:20 | HHI.PR ---
Subjective Patient symptoms today Successful placement of a left ureteral stent. Patient is clear for discharge from Urology standpoint. Patient to follow-up with [facility] at scheduled appt at end of February for definitive stone management. She may follow-up with [facility] if she wishes as well. Objective Vital Signs Vital Signs Date Time Temp Pulse Resp B/P Pulse Ox O2 Delivery O2 Flow Rate FiO2 02/16/17 16:25 80 16 158/86 100 02/16/17 16:00 93 16 162/84 100 02/16/17 15:45 98.0 95 16 151/79 98 Nasal Cannula 2 02/16/17 12:00 97.3 85 17 140/79 99 02/16/17 09:20 98 21 02/16/17 08:00 95.9 85 17 129/77 97 02/16/17 06:05 18 02/16/17 04:11 97.8 88 18 130/73 96 02/16/17 00:10 97.7 94 17 122/59 96 02/15/17 20:34 96.6 92 18 157/76 98 Intake & Output 02/16/17 02/16/17 07:00 19:00 Intake Total 1320 ml 1530 ml Output Total 50 ml Balance 1320 ml 1480 ml Intake Oral 480 ml 0 ml IV Total 840 ml 680 ml Other 850 ml Output Urine Total 0 ml Estimated Blood Loss 50 ml # Voids 4 3 # Bowel Movements 0 Result Diagram: 02/16/17 0515 02/16/17 0515 Medications and IVs Current Medications Medications (Trade) Dose Ordered Sig/Geoff Route Start Time Stop Time Status Last Admin (NS Flush) 2 ml UNSCH PRN IV FLUSH 02/15/17 14:15 (NS Flush) 2 ml BID IV FLUSH 02/15/17 14:15 (Tylenol) 650 mg Q4H PRN PO 02/15/17 14:15 (Zofran Inj) 4 mg Q6H PRN IVP 02/15/17 14:15 (Colace) 100 mg Q12HR PO 02/15/17 15:00 02/15/17 20:55 (Senokot) 17.2 mg Q12H PRN PO 02/15/17 14:15 (Lovenox Inj) 40 mg Q24H SQ 02/15/17 15:00 02/15/17 14:28 (Narcan Inj) 0.4 mg UNSCH PRN IV 02/15/17 14:15 (Percocet 5-325 Mg) 1 tab Q6H PRN PO 02/15/17 14:15 (Percocet 10-325 Mg) 1 tab Q6H PRN PO 02/15/17 14:15 02/16/17 04:58 (Dilaudid Pf Inj) 1 mg Q3H PRN IV 02/15/17 14:15 Tamsulosin HCl 0.4 mg 0.4 mg DAILY PO 02/16/17 09:00 (NS 1000 ml Inj) 1,000 ml @ 100 mls/hr Q10H IV 02/15/17 14:30 02/16/17 01:32 (Norvasc) 10 mg DAILY PO 02/16/17 09:00 (Pravachol) 20 mg HS PO 02/15/17 21:00 02/15/17 20:55 (D50w (Vial) Inj) 25 ml UNSCH PRN IV PUSH 02/15/17 18:00 Glucagon 1 mg 1 mg UNSCH PRN OTHER 02/15/17 18:00 (Lr 1000 ml Inj) 1,000 ml @ 0 mls/hr Q24H IV 02/16/17 03:15 Miscellaneous Information ALL NURSING DEPARTME... UNSCH PRN .XX 02/16/17 16:15 02/17/17 16:14 Assessment and Plan Problem List: (1) Ureterolithiasis ICD Code: N20.1 Status: Acute (2) Kidney stone on left side ICD Code: N20.0 Status: Acute (3) Intractable pain ICD Code: R52 Status: Acute Jonathan Landa MD Feb 16, 2017 19:19
[2017-02-16] MEDS: PRAVASTATIN SOD 20 MG TAB PO SCH (19:49)
[2017-02-16 20:00] VITALS: BP 167/79; PULSE 89; RESP 20; TEMP 98.6; O2SAT 94
[2017-02-17 00:10] VITALS: BP 149/79; PULSE 84; RESP 20; TEMP 96.4; O2SAT 95
[2017-02-17] MEDS: LACTATED RINGER'S 1000 ML INJ 1,000 ML IV SCH (03:11)
[2017-02-17] MEDS: oxyCODONE/ACETAMINOPHEN 10 MG/325 MG TAB PO PRN (04:34)
[2017-02-17] MEDS: SODIUM CHLOR 0.9% 1000 ML INJ 1,000 ML IV SCH ×2 (04:42→08:17)
[2017-02-17] MEDS: INSULIN ASPART SUPPLEMENTAL SCALE SQ SCH ×2 (06:16→10:57)
[2017-02-17] MEDS ORDERED: KETOROLAC TROMETHAMINE 30 MG/ML (IVP) VIAL IV PUSH ONE (07:45)
[2017-02-17 08:00] VITALS: BP 149/72; PULSE 77; RESP 16; TEMP 97; O2SAT 95
[2017-02-17] MEDS: SODIUM CHLORIDE 0.9% FLUSH 10 ML FLUSH IV FLUSH SCH (08:10)
[2017-02-17] MEDS: TAMSULOSIN HCL 0.4 MG CAP PO SCH (08:11)
[2017-02-17] MEDS: DOCUSATE SODIUM 100 MG CAP PO SCH (08:11)
[2017-02-17] MEDS ORDERED: ACET325T PO (10:33)
[2017-02-17] MEDS ORDERED: TAMS5CAP PO (10:33)
[2017-02-17] MEDS ORDERED: OXYC1TAB63 PO (10:33)
--- NOTE | 2017-02-17 10:33 | HHI.DCPOC ---
Discharge Care Plan Diagnosis: (1) Kidney stone on left side (2) Ureterolithiasis Goals to Promote Your Health * To prevent worsening of your condition and complications * To maintain your health at the optimal level Directions to Meet Your Goals Take your medications as prescribed Follow your dietary instruction Follow activity as directed Keep your appointments as scheduled Take your immunizations and boosters as scheduled If your symptoms worsen call your PCP, if no PCP go to Urgent Care Center or Emergency Room Smoking is Dangerous to Your Health. Avoid second hand smoke Call the 24-hour hour crisis hotline for domestic abuse at Erwin Peraza MD R2 Feb 17, 2017 10:33
[2017-02-17] MEDS ORDERED: [UNRECOGNIZED DRUG - CODE] (10:36)
[2017-02-17] MEDS ORDERED: ACETAMINOPHEN 325 MG TAB PO ONE (10:45)
[2017-02-17] MEDS ORDERED: SENNOSIDES 8.6 MG TAB PO ONE (11:00)
--- NOTE | 2017-02-17 11:36 | HHI.FPPN ---
Subjective Remarks Status post stent placement last night. This morning she is lying in bed and complaining of a diffuse headache and dizziness. The onset was this morning. Her glucose is 165. She has continued pain in her left lower quadrant that extends to the left CVA area that is about the same as before. She does not have fevers. She tried Tordol this morning but to no good effect. She wants to try Tylenol and reports that has worked before. No chest pain or shortness of breath. She has constipation. No diarrhea or vomiting. She does have some nausea. No calf tenderness. (Erwin Peraza MD R2) Objective Vitals Vital Signs Date Time Temp Pulse Resp B/P Pulse Ox O2 Delivery O2 Flow Rate FiO2 02/17/17 08:00 97.0 77 16 149/72 95 02/17/17 05:34 18 02/17/17 00:10 96.4 84 20 149/79 95 02/16/17 20:00 98.6 89 20 167/79 94 02/16/17 16:25 80 16 158/86 100 02/16/17 16:00 93 16 162/84 100 02/16/17 15:45 98.0 95 16 151/79 98 Nasal Cannula 2 02/16/17 12:00 97.3 85 17 140/79 99 I/O 02/16/17 02/16/17 02/16/17 02/17/17 02/17/17 02/17/17 07:00 15:00 23:00 07:00 15:00 23:00 Intake Total 530 ml 680 ml 1423 ml 1053 ml Output Total 50 ml 1600 ml Balance 530 ml 680 ml 1373 ml -547 ml Intake Oral 0 ml 240 ml 240 ml IV Total 530 ml 680 ml 333 ml 813 ml Other 850 ml Output Urine Total 0 ml 1600 ml Estimated Blood Loss 50 ml # Voids 2 2 3 # Bowel Movements 0 0 0 (Erwin Peraza MD R2) Result Diagram: 02/16/1751402/16/17514 Objective Remarks GENERAL: Lying in bed, in moderate pain from headache HEENT: NCAT, EOMI, no scleral icterus, no conjunctival injection. MMM. NECK: Supple, no meningeal signs. CV: RRR, S1 S2. No murmurs CHEST/PULM: CTAB, no crackles, no wheezes ABD/GI: +BS, soft, nondistended. Mild tenderness throughout, worse at LLQ. No rebound, no guarding. EXT: 2+ DP pulses. No edema. No calf tenderness : + Mild left CVA tenderness. No R CVA tenderness NEURO: Awake, alert. Normal muscle tone. Grossly WNL. SKIN: No rashes, no jaundice. PSYCH: Mood and affect are appropriate. Speech fluent. Does not appear to respond to internal stimuli. (Erwin Peraza MD R2) A/P Assessment and Plan 41 year old female with an obstructing left ureteric stone, which failed outpatient conservative treatment. Status post day 1 after stent placement. Discharge Planning Plan for discharge today if headache is controlled and she is no longer dizzy. Plan to follow up with [facility] in 3 weeks for definitive treatment. Strain urine at home to attempt to catch stone. Continue Tamsulosin to help stone pass. (Erwin Peraza MD R2) Attending Attestation Patient seen and examined, discussed with resident team. I agree with assessment and management as documented and discussed with me. Pt reports some dizziness/wooziness after taking percocet. She reports better pain relief with toradol. Provide this IV x 1 today. Discharge home today. (Ama Kahn MD) Problem List: (1) Kidney stone on left side Status: Acute Plan: Recurrent nephrolithiasis. Pt was seen one week prior in outside ER, where she was diagnosed with left nephrolithiasis. She has failed outpatient conservative management for this. CT demonstrates: 6 to 7 mm obstructing stone at the left ureteropelvic junction , with mild prominence of the left collecting system. Also incidentally with 1 to 2 mm multiple small calculi on the right. Also with a 2 mm kidney stone on the left. - Consulted Dr. Landa, urologist. She is status post day 1 after ureteric stent placement. - Continue current pain management regimen. Cautious with opioids as this may be contributing to symptoms this morning. - Tamsulosin 0.4 mg qday. - Maintenance fluids at 100 mls/hr. - Ondansetron PRN for nausea/vomiting. - Will send home with strainer to assess type of stones to better direct counseling/diet changes. - Will follow up with [facility] in 3 weeks, appt scheduled. (2) Diabetes type 2, controlled Status: Chronic Plan: - Hold metformin and Januvia, resume on discharge (3) Hypertension Status: Chronic Plan: - Continue amlodipine (4) Hyperlipidemia Status: Chronic Plan: - Continue statin (Erwin Peraza MD R2) Erwin Peraza MD R2 Feb 17, 2017 11:36 Ama Kahn MD Feb 17, 2017 19:36
[2017-02-17 12:00] VITALS: BP 139/75; PULSE 78; RESP 17; O2SAT 95
[2017-02-17] MEDS ORDERED: MELO-1 PO (14:05)
[2017-02-17] MEDS ORDERED: TYLETAB34 PO (14:12)
--- NOTE | 2017-02-17 17:32 | HHI.DS ---
Discharge Summary Admission Date Feb 15, 2017 at 2:07 pm Discharge Date: Feb 17, 2017 Admitting Diagnosis left ureterolithiasis, intractable left flank pain (1) Kidney stone on left side Diagnosis: Principal Plan: Recurrent nephrolithiasis. Pt was seen one week prior in outside ER, where she was diagnosed with left nephrolithiasis. She has failed outpatient conservative management for this. CT demonstrates: 6 to 7 mm obstructing stone at the left ureteropelvic junction , with mild prominence of the left collecting system. Also incidentally with 1 to 2 mm multiple small calculi on the right. Also with a 2 mm kidney stone on the left. - Consulted Dr. Landa, urologist. She is status post day 1 after ureteric stent placement. - Continue current pain management regimen. Cautious with opioids as this may be contributing to symptoms this morning. - Tamsulosin 0.4 mg qday. - Maintenance fluids at 100 mls/hr. - Ondansetron PRN for nausea/vomiting. - Will send home with strainer to assess type of stones to better direct counseling/diet changes. - Will follow up with [facility] in 3 weeks, appt scheduled. (2) Diabetes type 2, controlled Diagnosis: Secondary Plan: - Hold metformin and Januvia, resume on discharge (3) Hypertension Diagnosis: Secondary Plan: - Continue amlodipine (4) Hyperlipidemia Diagnosis: Secondary Plan: - Continue statin [facility] - Dr. Landa Procedures Cystoscopy - 02/16 Brief History 41 year old female presents with left sided flank pain. The pain started off as a dull ache one week ago. She went to the hospital at that time and was diagnosed with a kidney stone. She is now returning because the pain has become sharp, stabbing, and intense. It is located on in the left flank and radiates around to the left lower quadrant. The pain comes in paroxysms, and can be 8/10 when at its peak. It is currently a 4/10 after pain medication. She has pain with urination but no hematuria. This is her fourth kidney stone in 3 years. She had a fever 2 days ago as high as 101. She has nausea and had vomiting X3 four days ago that resolved. She also has a stuffy nose and a dry cough, and reports a history of allergic rhinitis. CBC/BMP: 02/16/17 0515 02/16/17 0515 Significant Findings Laboratory Tests Test 02/15/17 02/16/17 10:00 05:15 White Blood Count 17.9 TH/MM3 (4.0-11.0) Red Blood Count 5.49 MIL/MM3 (4.00-5.30) Hemoglobin 15.5 GM/DL (11.6-15.3) Hematocrit 47.3 % (35.0-46.0) Platelet Count 602 TH/MM3 461 TH/MM3 (150-450) (150-450) Neutrophils (%) (Auto) 79.3 % (16.0-70.0) Neutrophils # (Auto) 14.2 TH/MM3 (1.8-7.7) Monocytes # (Auto) 1.3 TH/MM3 1.0 TH/MM3 (0-0.9) (0-0.9) Eosinophils # (Auto) 0.6 TH/MM3 0.6 TH/MM3 (0-0.4) (0-0.4) Estimat Glomerular Filtration 71 ML/MIN (>89) Rate Random Glucose 166 MG/DL 164 MG/DL (74-106) (74-106) Aspartate Amino Transf 40 U/L (15-37) (AST/SGOT) Alanine Aminotransferase 87 U/L (10-53) 69 U/L (10-53) (ALT/SGPT) Alkaline Phosphatase 136 U/L (45-117) Total Protein 8.6 GM/DL (6.4-8.2) Monocytes (%) (Auto) 9.8 % (0.0-8.0) Eosinophils (%) (Auto) 6.1 % (0.0-4.0) Albumin 3.1 GM/DL (3.4-5.0) Imaging Last Impressions Abdomen/Pelvis CT 02/15/17 0958 Signed Impressions: Service Date/Time: Wednesday, February 15, 2017 11:45 - CONCLUSION: Obstructing 6 - 7 mm densely calcified stone left ureteropelvic junction. Rk Guevara MD FACR PE at Discharge GENERAL: Lying in bed, in moderate pain from headache HEENT: NCAT, EOMI, no scleral icterus, no conjunctival injection. MMM. NECK: Supple, no meningeal signs. CV: RRR, S1 S2. No murmurs CHEST/PULM: CTAB, no crackles, no wheezes ABD/GI: +BS, soft, nondistended. Mild tenderness throughout, worse at LLQ. No rebound, no guarding. EXT: 2+ DP pulses. No edema. No calf tenderness : + Mild left CVA tenderness. No R CVA tenderness NEURO: Awake, alert. Normal muscle tone. Grossly WNL. SKIN: No rashes, no jaundice. PSYCH: Mood and affect are appropriate. Speech fluent. Does not appear to respond to internal stimuli. Hospital Course Admitted due to abdominal pain, found to have urethral stone on CT. Urology consulted and performed cystoscopy with removal of stone 02/19. Still has some smaller stones (see CT report), but these will likely pass spontaneously. Urology cleared for D/C with pain control as noted below in prescriptions section. Pt Condition on Discharge: Good Discharge Disposition: Discharge Home Discharge Instructions DIET: Follow Instructions for: As Tolerated, No Restrictions Activities you can perform: Regular-No Restrictions Follow up Referrals: Appointment for Follow Up - 1 Week Appointment for Follow Up - 3 Weeks with Jonathan Landa MD Urology - 3 Weeks @ [facility] New Medications: Acetaminophen-Codeine (Tylenol-Codeine #3) 300-30 mg Tab 1 TAB PO Q4H PRN PAIN #30 Ref 0 TAB Meloxicam (Meloxicam) 15 Mg Tab 15 MG PO DAILY Pain #30 Ref 0 TAB Misc. Devices (Strainer/Stainless Steel) 1 Mis Mis UNITS kidney stone #1 Acetaminophen (Acetaminophen) 325 Mg Tab 650 MG PO Q4H PRN TEMP > 100.4 #30 TAB Oxycodone-Acetaminophen (Oxycodone-Acetaminophen) 5-325 mg Tab 1 TAB PO Q6H PRN pain #30 TAB Tamsulosin (Flomax) 0.4 Mg Cap 0.4 MG PO DAILY #30 CAP Continued Medications: Amlodipine (Amlodipine) 10 Mg Tab 10 MG PO DAILY Blood Pressure Management #30 Ref 0 TAB Aspirin (Aspirin) 81 Mg Tabdr 81 MG PO DAILY TAB Metformin (Metformin) 1,000 Mg Tab 1000 MG PO BIDPC With meals Blood Sugar Management #60 Ref 0 TAB [place]-3 Fatty Acids (Fish Oil) 1,000 Mg Cap 2000 MG PO BID Pravastatin (Pravastatin) 20 Mg Tab 20 MG PO HS Cholesterol Management #30 Ref 0 TAB Sitagliptin (Januvia) 25 Mg Tab 25 MG PO DAILY Blood Sugar Management #30 Ref 0 TAB Sitagliptin (Januvia) 100 Mg Tab 100 MG PO DAILY Blood Sugar Management #30 Ref 0 TAB Gasper Tirado MD R1 Feb 17, 2017 5:32 pm
--- NOTE | 2017-02-18 15:12 | MP ---
cc: MAINOR GUO MD DATE OF OPERATION February 16, 2017 PREOPERATIVE DIAGNOSIS Left nephrolithiasis. PROGNOSIS Left nephrolithiasis. SURGEON Mainor Guo MD PROCEDURE PERFORMED 1. Cystoscopy. 2. Left ureteral stent placement 6 x 24. PERTINENT FINDINGS 1. Successful placement of a 6 x 24 double-J ureteral stent on the left. Patient would likely benefit from a 6 x 22 in the future. 2. Immediate return of dark fluid with debris noted upon placement of the left ureteral stent. HISTORY OF PRESENT ILLNESS Wendy Gonzalez is a 41-year-old female who was found to have left obstructing ureteral stone. She states her pain has been persistent for two weeks and has become unbearable and therefore presented to the [facility]. She has agreed to proceed forward with a left ureteral stent placement with further management of her stone burden in the near future. PROCEDURE IN DETAIL After proper informed consent was obtained, the patient was taken to the operating room and remained supine on the table. The patient was placed under general anesthesia. The patient was placed in lithotomy position and prepped and draped in standard sterile fashion. After proper time-out was completed, the cystoscope was inserted through the urethra, into the bladder. The urethral mucosa was within normal limits. No lesions identified throughout. Of note, there was some mild pelvic organ prolapse noted. Upon entering the bladder, the bilateral ureteral orifices were identified. The remainder of the bladder was inspected; no other abnormalities noted. At this point, attention was turned to the left ureteral orifice. This was cannulated using the guidewire. The wire was able to be passed up into the left collecting system. Once the wire was beyond the stone, there was some debris noted from the left collecting system. At this point, a gentle left retrograde was completed which identified moderate left-sided hydronephrosis. A 6 x 24 double-J ureteral stent was then successfully placed in the left collecting system with the proximal portion of the stent in the upper pole calyx with the distal portion with a good curl in the bladder. Of note, the patient would likely benefit from a 6 x 22 stent in the future. At this point, the patient's bladder was emptied. Of note, there was significant murky fluid coming from the left ureter after successful placement of the left ureteral stent. The patient's bladder was emptied and the scope was removed. The patient tolerated the procedure with no complications. She was sent to the PACU in stable condition. DISPOSITION The patient may be discharged home once stable. The patient reports she has a follow-up visit with [facility] already scheduled in the near future. Dorota Fuentes/AMBER /7:17 PM /2:50 PM MTDD
[2017-03-11] MEDS ORDERED: SITA1TAB2 PO (10:25)
[2017-04-08] MEDS ORDERED: FISH500C (10:34)
[2017-04-08] MEDS ORDERED: PERC5TAB12 PO (12:58)
[2017-05-04] MEDS ORDERED: ASPI81TA67 PO (14:46)
== END 2017-02-17 15:33 | disposition home or self-care (01) | DRG 694 ==
LOC: NEPA 09:48 → NEDA 12:37 → OBSVTOIN 14:07 → NEPFCDU 15:46 → N07B 16:56
PROVIDERS: ADMIT Family Medicine; ATTEND Family Medicine
PROC: 0T778DZ Dilation of Left Ureter with Intraluminal Device, Via Natural or Artificial Opening Endoscopic (ICD-10-PCS; principal; 2017-02-16 14:58)
DX: N13.2 Hydronephrosis with renal and ureteral calculous obstruction (principal); I10 Essential (primary) hypertension; E11.9 Type 2 diabetes mellitus without complications; Z79.84 Long term (current) use of oral hypoglycemic drugs; E78.5 Hyperlipidemia, unspecified; D75.89 Other specified diseases of blood and blood-forming organs; Z87.442 Personal history of urinary calculi; Z79.82 Long term (current) use of aspirin; R51 Headache; R42 Dizziness and giddiness; K59.00 Constipation, unspecified
CPT/HCPCS: 74176; 74420; 80053; 81001; 82948; 83690; 84702; 85025; 85610; 85730; 96361; 96374; 96375; C1769; C2617; J0131; J0690; J1650; J1815; J1885; J2250; J2270; J2405; J3010; J7030; Q9967

== ENCOUNTER → 2017-04-08 | Day surgery (SDC) | payer MEDICAID ==
[~2017-04-08] VITALS: Ht 154.9 cm; Wt 56.8 kg
[~2017-04-08] MED LIST: ACET325T PO; AMLO10TA2 PO; ASPI1TAB69 PO; ASPI81TA67 PO; CHLORHEXIDINE GLUCONATE 2 % 1 PACK (2 CLOTHS) TOPICAL PRN; DEXAMETHASONE SOD PHOS 4 MG/ML VIAL ONE; DO NOT ADM ANY ANTICOAGULANT DRUGS PRN; FISH500C; INSULIN HUMAN REGULAR 1,000 UNITS/10 ML VIAL SQ PRN; KETOROLAC TROMETHAMINE 60 MG/2 ML (IM) VIAL IM ONE; LACTATED RINGER'S 1000 ML IV PRN; METF1000 PO; METOPROLOL TARTRATE 25 MG TAB PO PRN; MIDAZOLAM HCL 2 MG/2 ML VIAL ONE; ONDANSETRON HCL 4 MG/2 ML VIAL IV PUSH ONE; ONDANSETRON HCL 4 MG/2 ML VIAL IV PUSH PRN; PERC5TAB12 PO; POVIDONE IODINE 5% (ANTISEPSIS KIT) 4 APPLICATIONS EACH NARE PRN; PRAV20TA2 PO; PROPOFOL 200 MG/20 ML AMP IV ONE; SITA1TAB2 PO; SODIUM CHLORID 0.9% 500 ML IV PRN; TAMS5CAP PO; TYLETAB34 PO; [UNRECOGNIZED DRUG - CODE]; oxyCODONE/ACETAMINOPHEN 5 MG/325 MG TAB PO PRN
[2017-04-08 10:42] VITALS: BP 141/83; PULSE 92; RESP 16; TEMP 98.8; O2SAT 99
--- NOTE | 2017-04-08 10:45 | RADRPT ---
EXAM DATE/TIME: 04/08/2017 10:24 [facility] COMPARISON: CT ABDOMEN & PELVIS W/O CONTRAST, February 15, 2017, 11:45. INDICATIONS : Pre op, left side renal stones. MEDICAL HISTORY : None. SURGICAL HISTORY : None. ENCOUNTER: Initial ACUITY: 1 day PAIN SCORE: 9/10 LOCATION: Left abdomen. FINDINGS: A left sided nephroureteral stent is identified. Projecting to the left of the L2 vertebral body just inferior to the L2 transverse process overlying the stent is a calculus measuring 5.8 mm. Right lowe r pole and midpole renal calculi are faintly visualized. CONCLUSION: Left proximal ureteral stone. Right renal calculi. Griffin Stubbs MD on April 08, 2017 at 10:42 Board Certified Radiologist. This report was verified electronically.
[2017-04-08 11:04] LABS: AUTOMATED NEUTROPHIL # 7.2 TH/MM3 (1.8-7.7); BASOPHIL # 0.1 TH/MM3 (0-0.2); BASOPHIL % 0.6 % (0.0-2.0); EOSINOPHIL # 0.3 TH/MM3 (0-0.4); EOSINOPHIL % 3.2 % (0.0-4.0); HEMATOCRIT 44.4 % (35.0-46.0); HEMO FLAGS DIFF FINAL; LYMPH % 20.3 % (9.0-44.0); LYMPHOCYTE # 2.1 TH/MM3 (1.0-4.8); MEAN CELL VOLUME 85.2 FL (80.0-100.0); MEAN CORPUSCULAR HEMOGLOBIN 27.3 PG (27.0-34.0); MEAN CORPUSCULAR HGB CONC 32.1 % (32.0-36.0); MONO % 6.6 % (0.0-8.0); NEUT % 69.3 % (16.0-70.0); PLATELET COUNT 486 TH/MM3 (150-450); RED BLOOD COUNT 5.21 MIL/MM3 (4.00-5.30); RED CELL DISTRIBUTION WIDTH 16.8 % (11.6-17.2); WHITE BLOOD COUNT 10.4 TH/MM3 (4.0-11.0)
--- NOTE | 2017-04-08 12:57 | PD.OP ---
Operative Report Date of Surgery: April 08, 2017 Preoperative Diagnosis: (1) Ureteral calculus, left Postoperative Diagnosis: (1) Ureteral calculus, left Procedure: Extracorporeal shockwave lithotripsy left ureteral calculus Anesthesia: General Surgeon: Geovany Chirinos Office Administrator(s): None Operation and Findings: Indication for procedure: A very pleasant 41-year-old female with a 7 mm left midureteral calculus who is status post recent left ureteral stent insertion. Patient presents today to undergo left sided extracorporeal shockwave lithotripsy. Operative procedure in detail: Patient was brought to the operating room suite and placed supine on the lithotripsy table. She was next placed under general anesthesia. After an appropriate timeout was undertaken I proceeded with localizing the left midureteral calculus with fluoroscopy. The patient next received extra corporeal shockwave lithotripsy utilizing the [employer] Piezolith device. The patient received a total of 3000 shocks with a maximum power level setting of 20. At the conclusion of the procedure the stone remained intact but appeared somewhat training and development assistant in intensity. The patient tolerated the procedure without complications and was transferred to the PACU in satisfactory condition. Geovany Chirinos MD April 08, 2017 12:57
[2017-04-08 14:20] VITALS: BP 143/74; PULSE 96; RESP 16; TEMP 98.1; O2SAT 98
== END | disposition home or self-care (01) ==
LOC: HSDC 09:37
PROVIDERS: ATTEND Urology
DX: N20.1 Calculus of ureter (principal); I10 Essential (primary) hypertension; K21.9 Gastro-esophageal reflux disease without esophagitis; E78.5 Hyperlipidemia, unspecified; E11.9 Type 2 diabetes mellitus without complications; Z79.82 Long term (current) use of aspirin; Z79.84 Long term (current) use of oral hypoglycemic drugs; Z87.440 Personal history of urinary (tract) infections
CPT/HCPCS: 00873; 50590; 74000; 85025; J1100; J1885; J2250; J2405; J7120